=== PATIENT | female | born 1995 | race Caucasian/White ===

== ENCOUNTER 2024-10-30 20:58 | Inpatient (IN) | payer BC ==
[2024-10-30] MEDS ORDERED: hydrALAZINE 20 MG/ML VIAL SLOW IVP PRN (21:12)
[2024-10-30] MEDS ORDERED: Carboprost 250 MCG/ML AMP IM PRN (21:12)
[2024-10-30] MEDS ORDERED: Zolpidem Tartrate 5 MG TAB PO PRN (21:12)
[2024-10-30] MEDS ORDERED: Lidocaine 1% (PF) 30 ML VIAL SC PRN (21:12)
[2024-10-30] MEDS ORDERED: fentaNYL 50 mcg/mL 1 mL Vial SLOW IVP PRN (21:12)
[2024-10-30] MEDS ORDERED: Methylergonovine 0.2 MG/ML VIAL IM PRN (21:12)
[2024-10-30] MEDS ORDERED: Promethazine HCl 25 MG/ML VIAL IM PRN (21:12)
[2024-10-30] MEDS ORDERED: Acetaminophen 500 MG TAB PO PRN (21:12)
[2024-10-30] MEDS ORDERED: Misoprostol 200 MCG TAB PR PRN (21:12)
[2024-10-30] MEDS ORDERED: Ibuprofen 800 MG TAB PO PRN (21:12)
[2024-10-30] MEDS ORDERED: Ondansetron PF 4 MG/2 ML Vial IVP PRN (21:12)
[2024-10-30] MEDS ORDERED: Diphenoxylate HCl/Atropine Tablet PO PRN (21:12)
[2024-10-30] MEDS ORDERED: HYDROcodone/Acetaminophen 5/325 mg Tablet PO PRN (21:12)
[2024-10-30] MEDS ORDERED: Lactated Ringer's 1,000 ML IV SCH (21:15)
[2024-10-31] MEDS ORDERED: Oxytocin 30 units/NS 500 ML 500 ML IV SCH (03:00)
[2024-10-31 03:17] LABS: Hematocrit 39.7 % (34.9-44.5); Hemoglobin 13.4 g/dL (12.0-15.5); Mean Corpuscular HGB CONC 33.8 g/dL (32.0-36.0); Mean Corpuscular Hemoglobin 30.3 pg (27.0-33.0); Mean Corpuscular Volume 89.8 fL (81.6-98.3); Mean Platelet Volume 12.1 fL (7.4-10.4); Platelet Count 177 10x3/uL (150-450); RBC Distribution Width 15.5 % (11.5-14.5); Red Blood Cell (RBC) Count 4.42 10x6/uL (3.90-5.03); White Blood Cell (WBC) Count 7.12 10x3/uL (3.5-10.5)
[2024-10-31] MEDS: Misoprostol 100 MCG TAB VAG SCH (03:40)
[2024-10-31 03:53] LABS: HBsAg Index 0.24 S/CO (0-0.99); Hep B Surf Ag - L&D Non-Reactive S/CO (NonReactive)
[2024-10-31 03:55] LABS: Syphilis Antibody Nonreactive (Nonreactive); Syphilis Antibody Index 0.06 S/CO (<1.00 Non-Reactive)
[2024-10-31 05:25] VITALS: BMI 28.3
[2024-10-31] MEDS: fentaNYL/Ropivacaine Epidural 100 ML ONE (12:06)
[2024-10-31] MEDS ORDERED: Acetaminophen 325 MG TAB PO PRN (13:31)
[2024-10-31] MEDS ORDERED: ePHEDrine Sulfate 50 MG/10 ML VIAL SLOW IVP PRN (13:31)
[2024-10-31] MEDS ORDERED: Naloxone HCl 0.4 mg/ml Vial IVP PRN ×2 (13:31)
[2024-10-31] MEDS ORDERED: Ondansetron PF 4 MG/2 ML Vial IVP PRN (13:31)
[2024-10-31] MEDS ORDERED: Moisturizing Cream (Eucerin) 113 GM JAR TOP PRN (13:31)
[2024-10-31] MEDS ORDERED: Lactated Ringer's 500 ML IV PRN (13:31)
[2024-10-31] MEDS ORDERED: Promethazine HCl 25 MG/ML VIAL IM PRN ×2 (13:31→17:14)
[2024-10-31] MEDS ORDERED: diphenhydrAMINE 50 MG/ML VIAL IVP PRN (13:31)
[2024-10-31] MEDS ORDERED: Communication Order-Pharmacy FS SCH (13:45)
[2024-10-31] MEDS ORDERED: fentaNYL 2 mcg/Ropivacaine 0.2% Epidural 100 ML CADD EPIDURAL SCH (13:45)
[2024-10-31] MEDS: Oxytocin 30 units/NS 500 ML 500 ML IV SCH (15:55)
[2024-10-31] MEDS ORDERED: hydrALAZINE 20 MG/ML VIAL SLOW IVP PRN (17:14)
[2024-10-31] MEDS ORDERED: Benzocaine-Menthol 82.5 ML CAN TOP PRN (17:14)
[2024-10-31] MEDS ORDERED: Preparation H Ointment 28 GM TUBE PR PRN (17:14)
[2024-10-31] MEDS ORDERED: diphenhydrAMINE 25 MG CAP PO PRN (17:14)
[2024-10-31] MEDS ORDERED: Bisacodyl 10 MG SUPP PR PRN (17:14)
[2024-10-31] MEDS ORDERED: Lanolin Ointment 7 GM TUBE TOP PRN (17:14)
[2024-10-31] MEDS ORDERED: cefOXitin 2 GM in Sodium Chloride 0.9% 100 ML IVPB SCH (17:30)
[2024-10-31] MEDS: traMADol HCl 50 MG TAB PO PRN (18:27)
[2024-10-31] MEDS: Ondansetron PF 4 MG/2 ML Vial IVP PRN (18:27)
[2024-10-31] MEDS: Ibuprofen 800 MG TAB PO SCH (21:09)
[2024-10-31] MEDS: Docusate 100 MG CAP PO SCH (21:09)
[2024-11-01] MEDS: Prenatal Vitamin 1 TAB PO SCH (07:51)
[2024-11-01] MEDS: Ferrous Sulfate 325 MG TAB PO SCH (09:06)
[2024-11-02] MEDS: Milk Of Magnesia 30 ML UDCUP PO PRN (07:46)
[2024-11-02] MEDS: Polyethylene Glycol 3350 17 GM Packet PO SCH (20:55)
[2024-11-03] MEDS: Boostrix 0.5 ML (Tdap) VIAL (>/=7 yrs of age) IM ONE (07:35)
[2024-11-03] MEDS: Ferrous Sulfate 325 MG TAB PO SCH (07:35)
[2024-11-03 08:57] VITALS: BP 102/66; TEMP 97.7
== END 2024-11-03 10:20 | disposition home or self-care (01) | DRG 768 ==
LOC: CSHLD 20:58 → CSHPED 10-31 20:10
PROVIDERS: ADMIT Student in an Organized Health Care Education/Training Program; ATTEND Student in an Organized Health Care Education/Training Program
PROC: 10E0XZZ Delivery of Products of Conception, External Approach (ICD-10-PCS; principal; 2024-10-31)
PROC: 0DQP0ZZ Repair Rectum, Open Approach (ICD-10-PCS; 2024-10-31)
DX: O70.3 Fourth degree perineal laceration during delivery (principal); Z37.0 Single live birth; Z3A.39 39 weeks gestation of pregnancy
CPT/HCPCS: 36415; 51702; 85027; 86780; 86850; 86900; 86901; 87340; J2405; J2590